=== PATIENT | male | born 1930 | race Caucasian/White ===

== ENCOUNTER 2017-02-18 19:04 | Emergency (ER) | payer OTHER ==
[2017-02-18 23:41] LABS: BASOPHIL 0.6 % (0-2); EOSINOPHIL 6.5 % (0-7); HGB 12.5 g/dl (13.2-18.0); LYMPHOCYTE 28.2 % (15-48); MCH 31.1 pg (25.0-31.0); MCHC 34.7 g/dL (32.0-36.0); MCV 89.6 fL (78.0-100.0); MONOCYTE 12.7 % (0-12); MPV 10.1 fL (6.0-9.5); PLT 181 K/uL (150-400); RBC 4.02 M/uL (4.70-6.00); RDW 12.5 % (11.5-14.0); WBC 4.9 K/uL (4.0-10.5)
[2017-02-18 23:43] LABS: BILIRUBIN NEGATIVE (NEGATIVE); BLOOD NEGATIVE Ery/uL (NEGATIVE); CLARITY CLEAR (CLEAR); COLOR YELLOW (YELLOW); GLUCOSE (U) NORMAL (NORMAL); KETONE (U) NEGATIVE (NEGATIVE); LEUKOCYTES NEGATIVE Leu/uL (NEGATIVE); NITRITE NEGATIVE (NEGATIVE); PROTEIN NEGATIVE (NEGATIVE)
[2017-02-19 00:10] LABS: TROPONIN T < 0.010 ng/mL
[2017-02-19 00:11] LABS: PRO-BNP 1208 pg/mL (0-450)
[2017-02-19 00:12] LABS: CREATININE 0.9 mg/dL (0.7-1.2); POTASSIUM 4.1 mmol/L (3.5-5.1)
== END 2017-02-19 01:10 | disposition home or self-care (01) ==
LOC: FER 19:04
PROVIDERS: Emergency Medicine
DX: R42 Dizziness and giddiness (principal); R53.1 Weakness; R53.83 Other fatigue; R06.02 Shortness of breath; I11.0 Hypertensive heart disease with heart failure; I50.9 Heart failure, unspecified; I25.2 Old myocardial infarction; Z79.02 Long term (current) use of antithrombotics/antiplatelets; Z79.51 Long term (current) use of inhaled steroids; Z79.899 Other long term (current) drug therapy; Z95.0 Presence of cardiac pacemaker; Z95.1 Presence of aortocoronary bypass graft; Z95.5 Presence of coronary angioplasty implant and graft
CPT/HCPCS: 36415; 71010; 80048; 81003; 83880; 84484; 85025; 85379; 87804; 87899; 93005